=== PATIENT | female | born 1970 | race African-American/Black ===

== ENCOUNTER 2022-10-03 11:55 | Outpatient (REF) | payer OTHER, SELFPAY ==
[2022-10-05 17:43] LABS: TS Negative Control Passed; TS Panel A 88; TS Panel B 26; TS Positive Control Passed; TSpotTB Positive (Negative)
== END 2022-10-03 11:56 | disposition home or self-care (01) ==
LOC: HO.LAB 11:55
PROVIDERS: Visit Provider Internal Medicine
DX: Z11.1 Encounter for screening for respiratory tuberculosis (principal)
CPT/HCPCS: 36415; 86481